=== PATIENT | female | born 1975 | race Caucasian/White ===

== ENCOUNTER 2017-03-27 18:42 | Emergency (ER) | payer OTHER ==
[~2017-03-27] VITALS: Ht 165.1 cm; Wt 65.3 kg
[2017-03-27] MEDS ORDERED: diphenhydrAMINE HCL 25 MG CAPSULE PO ONE (19:07)
[2017-03-27] MEDS ORDERED: DEXAMETHASONE SOD PHOS 10 MG/ML VIAL ONE (19:07)
[2017-03-27] MEDS ORDERED: diphenhydrAMINE HCL 50 MG CAPSULE PO ONE (19:15)
[2017-03-27] MEDS ORDERED: DEXAMETHASONE SOD PHOS 10 MG/ML VIAL PO ONE (19:15)
[2017-03-27] MEDS ORDERED: FAMOTIDINE 20 MG TABLET PO ONE (19:15)
[2017-03-27 19:47] VITALS: BP 111/80
--- NOTE | 2017-03-27 20:25 | ED.ADGEN ---
Past History Past Medical History: No Pertinent History Past Surgical History: No Surgical History Alcohol Use: None Drug Use: None Adult General HPI HPI Patient is a 42-year-old woman, with no significant past medical history, who takes no medications on a regular basis, who presents to the emergency department with a complaint of hives. 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 She denies any new exposures, detergents, lotions, gardening, ingestions, or other possible inciting factors, denies any similar symptoms previously, any respiratory or GI complaints. Patient has not taken any medication prior to coming to the ED for evaluation. Review of Systems Review of Systems Constitutional: Denies fever or chills [] Eyes: Denies change in visual acuity, redness, or eye pain [] HENT: Denies nasal congestion or sore throat [] Respiratory: Denies cough or shortness of breath [] Cardiovascular: No additional information not addressed in HPI [] GI: Denies abdominal pain, nausea, vomiting, bloody stools or diarrhea [] : Denies dysuria or hematuria [] Musculoskeletal: Denies back pain or joint pain [] Integument: Urticarial rash on arms abdomen and chest. Neurologic: Denies headache, focal weakness or sensory changes [] Endocrine: Denies polyuria or polydipsia [] Current Medications Current Medications Current Medications Medications (Trade) Dose Ordered Sig/Karen Start Time Stop Time Status Last Admin Dose Admin Dexamethasone Sodium Phosphate (Decadron) 10 mg STK-MED ONCE 03/27/17 19:07 03/27/17 19:08 DC Diphenhydramine HCl (Benadryl) 25 mg STK-MED ONCE 03/27/17 19:07 03/27/17 19:08 DC Famotidine (Pepcid) 40 mg 1X ONCE 03/27/17 19:15 03/27/17 19:16 DC 03/27/17 19:11 40 MG Allergies Allergies Allergies Coded Allergies Type Severity Reaction Last Updated Verified No Known Drug Allergies 03/27/17 No Physical Exam Physical Exam Constitutional: Well developed, well nourished, no acute distress, non-toxic appearance. [] HENT: Normocephalic, atraumatic, bilateral external ears normal, oropharynx moist, no oral exudates, nose normal. [] Eyes: PERRLA, EOMI, conjunctiva normal, no discharge. [] Neck: Normal range of motion, no tenderness, supple, no stridor. [] Cardiovascular:Heart rate regular rhythm, no murmur , S1, S2, rubs or gallops.[] Lungs & Thorax: Bilateral breath sounds clear to auscultation, no wheezing, rhonchi, rales. No chest or crepitus or tenderness. [] Abdomen: Bowel sounds normal, soft, no tenderness, no masses, no pulsatile masses. [] Skin: Warm, dry, no erythema, patient with coalescing urticarial rash noted across abdomen, and in the flexor surfaces of the forearms bilaterally, also at the patient's left wrist. No abscess formation, duration, no signs of trauma or of contact exposure. Back: No tenderness, no CVA tenderness. [] Extremities: No tenderness, no cyanosis, no clubbing, ROM intact, no edema. [] Neurologic: Alert and oriented X 3, normal motor function, normal sensory function, no focal deficits noted. [] Psychologic: Affect normal, judgement normal, mood normal. [] Current Patient Data Vital Signs Vital Signs Date Time Temp Pulse Resp B/P (MAP) Pulse Ox O2 Delivery O2 Flow Rate FiO2 03/27/17 19:47 51 14 111/80 (90) 100 Room Air 03/27/17 18:45 98.7 EKG EKG Not indicated.[] Radiology/Procedures Radiology/Procedures Not indicated.[] Course & Med Decision Making Course & Med Decision Making Pertinent Labs and Imaging studies reviewed. (See chart for details) Patient well-appearing, with urticarial rash and raised red welts noted in the flexor surfaces of the forearms, at the wrists, and across the abdomen. So noted also on the back. There is no line demarcation, no sign of particular contact exposure. Patient cannot list any possible offending sources. As stated , she has no evidence of any systemic involvement, or any respiratory issues. Patient treated with Decadron, Solu-Medrol, famotidine in the ED. Patient observed for approximately an hour, and reevaluation states the itching is slightly improved, without and felt any concerning symptoms. I did discuss follow-up with her primary care provider for potential referral for allergy testing, continued use of Benadryl as needed for itching, discussed the fact that these welts and urticarial lesions will not dissipate immediately, and it may be several hours tomorrow before she noted significant improvement. We also discussed concerning symptoms that prompt return to the emergency department in detail. Patient voiced understanding and agreement, discharged home in stable condition with plan as above. Final Impression Final Impression [] Problems: Dragon Disclaimer Dragon Disclaimer This electronic medical record was generated, in whole or in part, using a voice recognition dictation system. Departure: Impression: Primary Impression: Urticaria Disposition: 01 HOME, SELF-CARE Condition: IMPROVED KEVIN GIBBS DO Mar 27, 2017 20:25
== END 2017-03-27 19:53 | disposition home or self-care (01) ==
LOC: ER 18:42
DX: L50.9 Urticaria, unspecified (principal)
CPT/HCPCS: 99284; J1100; Q0163